=== PATIENT | male | born 1995 | race Caucasian/White ===

== ENCOUNTER 2022-05-02 21:05 | Observation (INO) | payer BC, SELFPAY ==
--- NOTE | ~2022-05-02 | XR_ITS ---
EXAMINATION: XR abdomen/kub 1V INDICATION: Abdominal pain TECHNIQUE: Supine views of the abdomen were obtained on 2 radiographs. COMPARISON: 05/03/2022; CT, 05/02/2022 FINDINGS: The bowel gas pattern is normal. There are no dilated loops of bowel. No free intraperitone al gas is identified. The visualized osseous structures are unremarkable. Phleboliths are noted in th e left pelvis. IMPRESSION: 1. Unremarkable KUB. Reviewed, dictated and finalized at location L. DHOUSE FIRER/FIREMAN IMPRESSION: 1. Unremarkable KUB.
--- NOTE | ~2022-05-02 | CT_ITS ---
[facility]AM[facility] DATE: 05/02/2022 23:01 INDICATION: Chronic cough, diarrhea, chronic back pain . TECHNIQUE: Computed tomography (CT) of the chest, abdomen,, pelvis, thoracic spine, and lumbar spine was performed with 100 mL Omnipaque-350 intravenous contrast. Automated exposure control and iterativ e reconstruction technique were employed. The dose-length product was 580.72 mGy-cm. COMPARISON: None FINDINGS: Thoracic aorta: No significant dilation or calcification. Lung parenchyma and airways: Lungs and airways are clear. Thoracic inlet, axillae and chest wall: No thyroid or soft tissue mass. No axillary lymphadenopathy. Mediastinum: No mass or lymphadenopathy. Heart and pericardium: Normal heart size. No pericardial effusion. Coronary artery calcifications: Absent. Pleura: No effusion or mass. Thoracic bones, excluding spine: No acute osseous finding in the chest. ABDOMEN/PELVIS: Liver: Normal. Biliary/Gallbladder: Gallbladder is normal. No bile duct dilation. Pancreas: No mass or duct dilation. Spleen: Normal. Adrenals:No mass. Kidneys: No mass, stone, or hydronephrosis. GI tract: Multiple loops of mildly dilated small bowel with mild wall thickening. No transition point . No pneumatosis. Uniform bowel wall enhancement. Fluid-filled colon. No large bowel dilation. Normal appendix. Mesentery/Peritoneum: No ascites, mass, or free air. Retroperitoneum: No mass. Pelvis: Pelvic organs are within normal limits. Focal prostate calcification. Soft Tissues: Soft tissues and body wall unremarkable. Abdominopelvic bones, excluding the spine: No acute osseous finding in the abdomen/pelvis. THORACIC SPINE: Vertebral body alignment intact. Vertebral body heights preserved. No disc space narrowing. No trauma tic malalignment or fracture. Visualized lung parenchyma is clear. LUMBAR SPINE: 5 nonrib-bearing lumbar-type vertebral bodies. Pedicles intact. Normal vertebral body alignment. Vert ebral body heights preserved. Bilateral sacralization of L5. Rudimentary disc at L5-S1. Remaining dis c spaces are normal. Normal facets and posterior elements. IMPRESSION: Infectious or inflammatory enteritis with mild ileus, noting that early or partial obstruction cannot be entirely excluded. If there is a history of vasculitis, bowel ischemia should be considered in th e differential. Fluid-filled colon, as can be seen with diarrheal illness. Otherwise, no acute findin g in the chest, abdomen, pelvis, thoracic spine, or lumbar spine. Reviewed, dictated and finalized at location K. GER SCIENCE IMPRESSION: Infectious or inflammatory enteritis with mild ileus, noting that early or part ial obstruction cannot be entirely excluded. If there is a history of vasculiti s, bowel ischemia should be considered in the differential. Fluid-filled colon, as can be seen with diarrheal illness. Otherwise, no acute finding in the ches t, abdomen, pelvis, thoracic spine, or lumbar spine.
--- NOTE | ~2022-05-02 | XR_ITS ---
EXAM: XR abdomen/kub 1V DATE: 05/03/2022 11:50 HISTORY: f/u bowel obstruction, N/V yesterday evening non stop . COMPARISON: None available. FINDINGS: Clear lung bases. Increased small bowel wall thickening in a loop of small bowel in the le ft upper quadrant, otherwise similar degree of mild small bowel wall thickening more diffusely. Incre ased mild small bowel dilation in the same loop in the left upper quadrant, otherwise the bowel dilat ion is less evident in this examination, noting that multiple loops of small bowel were fluid-filled in the prior study and would not be visualized radiographically. No organomegaly. No abnormal abdomin al calcification. Regional bones and soft tissues normal for age. IMPRESSION: Mildly increased dilation and small bowel wall thickening in a loop of small bowel in the left upper quadrant. Reviewed, dictated and finalized at location K. WALKER
[2022-05-02 21:10] VITALS: BP 129/78; PULSE 103; RESP 18; TEMP 36.5; O2SAT 99
--- NOTE | 2022-05-02 21:20 | ED.NAVMDI ---
HPI - Nausea/Vomiting/Diarrhea General Chief complaint: Nausea/Vomiting/Diarrhea Stated complaint: vomiting, diarrhea, back and side pain Time Seen by Provider: 05/02/22 21:07 Source: patient and RN notes reviewed Mode of arrival: ambulatory Limitations: no limitations History of Present Illness MD elicited complaint: nausea, vomiting and diarrhea Onset (ago): hour(s) (4) Description of vomiting: bilious Description of diarrhea: watery Associated nausea: Yes Associated abdominal pain: No Location of pain: diffuse Pain consistency: intermittent Severity: mild Quality: cramping Exacerbating factors: eating Relieving factors: none Context: sick contacts ( son with same symptoms) Associated symptoms: myalgias ( Lower back), fever/chills and malaise Related Data Home Medications Medication Instructions Recorded Confirmed No Home Medications 04/11/19 05/02/22 Allergies Allergy/AdvReac Type Severity Reaction Status Date / Time No Known Allergies Allergy Unverified 04/11/19 08:41 Review of Systems Review of Systems: All systems reviewed & are unremarkable except as noted in HPI and below PMFSH Past Medical History Medical History No active medical problems Small bowel obstruction, partial Surgical History Surgical History H/O wrist surgery right FX repair Social History Social History Smoking status: Never smoker Alcohol intake: never Substance use: never Substance use type: does not use Lack of Transportation: No Lack of Food: Never True Current Housing: I Have Housing Concerned About Future Housing: No Difficulty Paying Gas/Electric Bills: No Difficulty Paying for Meds: No Currently Unemployed: No Education: High School Diploma/GED Difficulty w/ Childcare or Family Care: No Gender identity (if verbalized by the patient): Male Spiritual care concerns: No Exam Const: General: healthy appearing, no acute distress and alert Nutritional Appearance: well nourished and thin Orientation/consciousness: patient oriented x3 Limitations: no limitations HENMT: Head: normal to inspection Ears: external ears normal Eyes: Conjunctivae: conjunctivae normal Cornea: corneas normal Pupils: Equal, round and reactive pupils present EOM: EOMs intact bilaterally Neck: Neck: normal visual inspection Resp: Effort & Inspection: normal respiratory effort Auscultation: clear to auscultation bilaterally Cardio: Rate: regular rate Rhythm: regular rhythm GI: GI Palp: Yes Soft to palpation, Yes Tenderness to palpation present (GI) ( mild generalized), Yes Guarding due to palpation present (GI) ( mild generalized) and No Rebound tenderness present Auscultation: normal bowel sounds Back/Spine/Pelvis: Cervical Spine: cervical ROM normal Thoracic/Lumbar Spine: thoraco-lumbar ROM normal Skin: General skin exam: normal color Rashes: no rashes Neuro: General: patient oriented x3, moves all extremities, no focal motor deficits and CN's II-XI intact bilaterally Speech: normal speech Gait exam (Neuro): Normal gait present Extrem: General: normal to inspection and no clubbing, cyanosis or edema Psych: Mental Status: mental status grossly normal Affect: normal affect Attitude: cooperative Course Course Emergency Course: patient given 500 mL bolus of normal saline then 1 L of LR with his elevated lactic acid. He is given 600 mg clindamycin IV. I discussed case with Lacey Garcia APN who agreed with observation admission. Vital Signs Vital signs: Vital Signs Temperature 36.5 C 05/02/22 21:10 Pulse Rate 103 H 05/02/22 21:10 Respiratory Rate 18 05/02/22 21:10 Blood Pressure 129/78 05/02/22 21:10 Pulse Oximetry 99 05/02/22 21:10 Oxygen Delivery Room Air 05/02/22 21:10 Temperature 36.7 C 05/04/22 08:00
[2022-05-02 21:33] LABS: Hematocrit 49.1 % (40.0-54.0); Hemoglobin 16.8 g/dL (14.0-18.0); Mean Corpuscular HGB Conc 34.2 g/dL (32.0-36.0); Mean Corpuscular Volume 84.8 fL (78.0-102.0); Mean Platelet Volume 9.4 fl (8.7-11.0); Platelet Count Result 269 K/mm3 (150-420); Red Blood Count 5.79 M/mm3 (4.70-6.10); Red Cell Distribution Width 12.3 % (11.6-14.4)
[2022-05-02 21:34] LABS: Appearance Urine Clear (Clear); Bilirubin Urine 2+ (Negative); Blood Urine Negative (Negative); Glucose Urine UA Negative (Negative); Ketones Urine 2+ (Negative); Leukocyte Esterase Ur Trace LEU/UL (Negative); Nitrate Urine Negative (Negative); Protein Urine 2+ (Negative); Specific Grav Ur >= 1.030 (1.010-1.020); pH Urine 5.5 (5.0-8.0)
[2022-05-02] MEDS: SODIUM CHLORIDE 0.9% IV 1,000 ML 999 ML IV CONT (21:35)
[2022-05-02 21:40] LABS: White Blood Count 20.2 K/mm3 (4.8-10.8)
[2022-05-02 21:41] LABS: Add Urine Microscopic? YES; Color Urine Dark Yellow (Yellow); RBC Urine 0-2 /hpf (0-2)
[2022-05-02 21:42] LABS: Amorphous Sediment Urine Few; Bacteria Urine 1+ /hpf; Mucus Urine Moderate /lpf; Squamous Epithelial Cell Urine Rare /hpf (Few)
[2022-05-02 21:46] LABS: Lactic Acid Reflex 4.6 mmol/L (0.4-2.0)
[2022-05-02 21:50] LABS: Alanine Aminotransferase 19 U/L (16-63); Albumin Level 5.4 g/dL (3.4-5.0); Alkaline Phosphatase 92 U/L (46-116); Anion Gap 17 mmol/L (8-16); Aspartate Amino Transferase 20 U/L (15-37); Bilirubin,Total 2.2 mg/dL (0.00-1.00); Blood Urea Nitrogen 24 mg/dL (7-18); Calcium 10.8 mg/dL (8.5-10.1); Carbon Dioxide 26 mmol/L (21-32); Chloride 98 mmol/L (98-108); Estimated CRCL calculation 57 ml/min; Estimated Glomerular Filt Rate > 60; Glucose 193 mg/dL (70-99); Osmolality Calculated 301 mOsm/kg (285-295); Potassium 3.7 mmol/L (3.5-5.1); Sodium 141 mmol/L (136-145)
[2022-05-02 21:51] LABS: CRP < 0.5 mg/dL (0.0-0.9); Magnesium 1.6 mg/dL (1.8-2.4)
[2022-05-02 22:03] LABS: Influenza A QL RT-PCR Negative (Negative); Influenza B QL RT-PCR Negative (Negative); SARS-CoV-2 RNA PCR Negative (Negative)
[2022-05-02 22:04] LABS: Band Neutrophils Percent 3 % (0-6); Basophils Percent Manual 0 % (0-1); Eosinophils Percent Manual 1 % (1-6); Lymphocytes Absolute Manual 1.21 K/mm3 (1.1-4.5); Lymphocytes Percent Manual 6 % (18-44); Monocytes Absolute Manual 1.61 K/mm3 (0.1-0.90); Monocytes Percent Manual 8 % (3-9); Neutrophils Absolute Manual 17.17 K/mm3 (1.3-6.7); Neutrophils Percent Manual 82 % (46-73); Platelet Estimate Adequate (Adequate); Total Cells Counted 100
[2022-05-02] MEDS: LACTATED RINGERS 1,000 ML 999 ML IV CONT (22:19)
[2022-05-02 23:29] VITALS: BP 96/53; PULSE 106; RESP 20; TEMP 36.8; O2SAT 99
[2022-05-02] MEDS: CLINDAMYCIN 600 MG/D5W 50 ML 600 MG/50 ML PIGGYBACK 100 MG IVPB (23:39)
[2022-05-02 23:58] VITALS: BP 105/85; PULSE 105; RESP 20; O2SAT 100
[2022-05-03] VITALS (13 sets, daily range): BP systolic 99–120; BP diastolic 47–67; PULSE 70–110; RESP 14–20; TEMP 36.9–37.8; O2SAT 97–100; BMI 18.3
[2022-05-03] MEDS: LACTATED RINGERS 1,000 ML 150 ML IV CONT ×2 (00:17→06:26)
[2022-05-03 00:27] LABS: Reflex Lactic Acid Yes or No Add Lactic
[2022-05-03 00:59] LABS: Lactic Acid 1.3 mmol/L (0.4-2.0)
--- NOTE | 2022-05-03 01:15 | ADMGEN ---
This patient, Blake Delacruz, was admitted to 2nd Floor Room 226-2 for 23 hr obs on telemetry. Patient/family oriented to hospital policies and general routines including ID bracelet, bed and alarms, visiting hours, pain management, procedures, bathroom and other care routines, personal items, smoking policy, room service/diet, and visiting hours. Information on how to activate the Rapid Response Team has been discussed. Patient/Family are encouraged to report perceived risks to care and to ask questions if they do not understand what they are told or what they should do. Pt. is knowledgable on POC and obs. stay, he has no report of c/o at this time and states he is feeling much better on admission, reports he is tired but will call if needed or changes occur.
--- NOTE | 2022-05-03 03:30 | PC.NURSE ---
Pt sleeping, no distress noted, IVF infusing as per order, call galaviz at pt side.
--- NOTE | 2022-05-03 05:00 | PC.NURSE ---
Pt awake, noted temp is down to 99.0. Pt has c/o slight nausea but refuses any antinausea medicine, states he wants to sleep. VSS no distress or other c/o. Call galaviz at pt side.
[2022-05-03 05:25] LABS: Alanine Aminotransferase 15 U/L (16-63); Albumin Level 3.6 g/dL (3.4-5.0); Alkaline Phosphatase 63 U/L (46-116); Anion Gap 6 mmol/L (8-16); Aspartate Amino Transferase 14 U/L (15-37); Bilirubin,Total 2.2 mg/dL (0.00-1.00); Blood Urea Nitrogen 20 mg/dL (7-18); Calcium 8.8 mg/dL (8.5-10.1); Carbon Dioxide 30 mmol/L (21-32); Chloride 106 mmol/L (98-108); Estimated CRCL calculation 71 ml/min; Estimated Glomerular Filt Rate > 60; Glucose 128 mg/dL (70-99); Osmolality Calculated 298 mOsm/kg (285-295); Potassium 4.3 mmol/L (3.5-5.1); Sodium 142 mmol/L (136-145); Total Protein 6.4 g/dL (6.4-8.2)
[2022-05-03 05:29] LABS: Lactic Acid Reflex 1.1 mmol/L (0.4-2.0)
[2022-05-03] MEDS: CLINDAMYCIN 600 MG/D5W 50 ML 600 MG/50 ML PIGGYBACK 100 MG IVPB (05:52)
--- NOTE | 2022-05-03 06:22 | PC.NURSE ---
Pt awake, c/o nausea and given Zofran 4mg IVP as per order. Pt walked to BR, had episode of diarrhea and urinated. Back to bed, he reports feeling some better.
[2022-05-03] MEDS: ONDANSETRON INJ 4 MG/2 ML VIAL IV PUSH ×2 (06:26→11:02)
[2022-05-03] MEDS: ACETAMINOPHEN 325 MG TABLET 650 MG (11:01)
[2022-05-03 11:11] LABS: Basophils Absolute Auto 0.02 K/mm3 (0.00-0.10); Basophils Percent Auto 0.2 % (0.0-1.0); Eosinophils Absolute Auto 0.01 K/mm3 (0.02-0.50); Eosinophils Percent Auto 0.1 % (1.0-6.0); Hematocrit 39.9 % (40.0-54.0); Hemoglobin 13.4 g/dL (14.0-18.0); Immature Granulocyte Absolute 0.03 K/mm3 (0.00-0.00); Immature Granulocyte Percent A 0.3 % (0.0-0.0); Lymphocytes Absolute Auto 0.58 K/mm3 (1.10-4.50); Mean Corpuscular HGB Conc 33.6 g/dL (32.0-36.0); Mean Corpuscular Hemoglobin 29.2 pg (27.0-31.0); Mean Corpuscular Volume 86.9 fL (78.0-102.0); Mean Platelet Volume 10.2 fl (8.7-11.0); Monocytes Absolute Auto 0.79 K/mm3 (0.10-0.90); Monocytes Percent Auto 6.9 % (2.0-11.0); Neutrophils Absolute Auto 10.1 K/mm3 (1.7-7.2); Neutrophils Percent Auto 87.5 % (50.0-70.0); Platelet Count Result 210 K/mm3 (150-420); Red Blood Count 4.59 M/mm3 (4.70-6.10); Red Cell Distribution Width 12.8 % (11.6-14.4); White Blood Count 11.5 K/mm3 (4.8-10.8)
--- NOTE | 2022-05-03 11:21 | PM.IMHP ---
H&P: HPI History of Present Illness Date/Time: 05/03/22 11:21 Chief Complaint: nausea and vomiting, Diarrhea Narrative: This is a 26 year old that comes in with nausea and vomiting with diarrhea that was severe and it started 3 hour prior to coming in to the emergency room . Patient has a insignificance past medical history and had his tonsils removed and fracture pin placed for surgical history . Patient take no medication at home he does not have a primary care provider and he does not smoke and drinks on occasion. Patient was found to have a UTI and some enteritis with a possible start of bowel obstruction with a noted small ileus noted Patient has remained NPO and is still having 1 episode of diarrhea noted. Mr. Delacruz is getting IV fluids switched his antibiotic from clindamycin to Rocephin and I have given him some Flagyl as well. Awaiting KUB Result as we will start him on clear liquid. Review of Systems Review of Systems: Abdominal pain , nausea , vomiting All systems reviewed & are unremarkable except as noted in HPI and below PMFSH Past Medical History Medical History (Updated 05/03/22 @ 11:29 by Marlene Swain NP) No active medical problems Small bowel obstruction, partial Surgical History Surgical History H/O wrist surgery right FX repair Social History Social History Smoking status: Never smoker Alcohol intake: never Substance use: never Substance use type: does not use Lack of Transportation: No Lack of Food: Never True Current Housing: I Have Housing Concerned About Future Housing: No Difficulty Paying Gas/Electric Bills: No Difficulty Paying for Meds: No Currently Unemployed: No Education: High School Diploma/GED Difficulty w/ Childcare or Family Care: No Gender identity (if verbalized by the patient): Male Spiritual care concerns: No Comments At time as signature, I have reviewed and agree with nursing past medical, social, surgical and family history. Please see nursing chart for further information. There is no relevant family history pertinent to the presenting complaint. Meds Home Medications and Allergies Home Medications Medication Instructions Recorded Confirmed Type No Home Medications 04/11/19 05/02/22 History Allergies Allergy/AdvReac Type Severity Reaction Status Date / Time No Known Allergies Allergy Unverified 04/11/19 08:41 Vital Signs Vital Signs - 24 hr 05/02/22 21:10 05/02/22 23:29 05/02/22 23:58 Temperature 97.7 F 98.3 F Pulse Rate 103 H 106 H 105 H Respiratory Rate 18 20 20 Blood Pressure 129/78 96/53 L 105/85 Pulse Oximetry 99 99 100 Oxygen Delivery Room Air Room Air Room Air 05/03/22 01:05 05/03/22 01:24 05/03/22 01:25 Temperature 100.1 F H 100.1 F H Pulse Rate 110 H 110 H Respiratory Rate 20 Blood Pressure 118/57 L Pulse Oximetry 97 Oxygen Delivery Room Air 05/03/22 03:52 05/03/22 04:55 05/03/22 06:00 Temperature 99 F 98.9 F Pulse Rate 97 96 70 Respiratory Rate 18 20 Blood Pressure 115/67 110/54 L Pulse Oximetry 97 100 Oxygen Delivery Room Air Room Air 05/03/22 08:00 05/03/22 08:00 05/03/22 11:01 Temperature 99.2 F 99.5 F Pulse Rate 96 96 Respiratory Rate 14 Blood Pressure 99/47 L Pulse Oximetry 97 Oxygen Delivery Room Air Exam Narrative: GENERAL:Well-appearing, well-nourished, and in no acute distress. HEAD:Normocephalic, atraumatic. EYES: PERRLA and EOMI. ENT: Nares clear, no rhinorrhea or epistaxis. Mucous membranes moist. CHEST: Clear to auscultation. No respiratory distress. HEART: Regular rate and rhythm. No murmur heard. Normal peripheral pulses. ABDOMEN: Soft, nontender, nondistended, normal active bowel sounds. EXTREMITIES: Normal range of motion. No edema. SKIN: Warm, dry, no rash. NEURO: No focal deficits. Alert and oriented
[2022-05-03] MEDS: BISACODYL 5 MG TABLET EC PO (12:35)
[2022-05-03] MEDS: SODIUM CHLORIDE 0.9% IV 1,000 ML 100 ML (12:40)
[2022-05-03] MEDS: metroNIDAZOLE 500 MG/ISO 100ML 500 MG/100 ML BAG 100 MG IVPB ×2 (12:47→19:42)
--- NOTE | 2022-05-03 14:20 | PC.NURSE ---
Called to room to view BM, noted to have dark green grainy type stool at bottom of toilet, no formed stool noted
--- NOTE | 2022-05-03 15:00 | PC.NURSE ---
CHARGE NURSE INFORMED ELECTROPLATER THAT PATIENT HAS BEEN ADVANCED TO CLEAR LIQUID DIET AND ORDER WILL BE PUT IN BY NURSE PRACTITIONER. NO NAUSEA/VOMITING AT THIS TIME. PT HAVING BOWEL MOVEMENTS OF GREEN/YELLOW GREASY CLEAR LIQUID. HAT PLACED IN COMMODE FOR BETTER ASSESSMENT. THERE IS AN ORDER FOR IV LR THAT IS SHOWING ON PATIENT MAR, HOWEVER PER CHARGE NURSE THIS WAS AN ERROR BY THE ORE WASHER AND REPORTS ORE WASHER WILL DISCONTINUE AND CONTINUE WITH NORMAL SALINE. IVF INFUSING.
--- NOTE | 2022-05-03 15:36 | PC.NURSE ---
Pt has been having diarhea through out the day. This has changed from clear watery stool to green stool with solid flecks.
[2022-05-03] MEDS: polyethylene glycoL 3350 17 GM POWD.PACK PO (17:08)
[2022-05-03] MEDS: levoFLOXacin 500 MG/D5W 100 ML 500 MG/100 ML BAG 100 MG IVPB (18:07)
[2022-05-03] MEDS: SODIUM CHLORIDE 0.9% IV 1,000 ML 100 ML IV CONT (18:11)
[2022-05-04] MEDS: ONDANSETRON INJ 4 MG/2 ML VIAL IV PUSH (01:30)
[2022-05-04] MEDS: SODIUM CHLORIDE 0.9% IV 1,000 ML 100 ML IV CONT (01:34)
[2022-05-04] MEDS: ACETAMINOPHEN 325 MG TABLET 650 MG PO (02:03)
[2022-05-04] MEDS: metroNIDAZOLE 500 MG/ISO 100ML 500 MG/100 ML BAG 100 MG IVPB (03:11)
[2022-05-04 05:27] LABS: Basophils Absolute Auto 0.01 K/mm3 (0.00-0.10); Basophils Percent Auto 0.2 % (0.0-1.0); Eosinophils Absolute Auto 0.14 K/mm3 (0.02-0.50); Eosinophils Percent Auto 2.6 % (1.0-6.0); Hematocrit 35.5 % (40.0-54.0); Hemoglobin 11.9 g/dL (14.0-18.0); Immature Granulocyte Absolute 0.02 K/mm3 (0.00-0.00); Immature Granulocyte Percent A 0.4 % (0.0-0.0); Lymphocytes Absolute Auto 1.29 K/mm3 (1.10-4.50); Lymphocytes Percent Auto 24.1 % (18.0-42.0); Mean Corpuscular HGB Conc 33.5 g/dL (32.0-36.0); Mean Corpuscular Hemoglobin 29.4 pg (27.0-31.0); Mean Corpuscular Volume 87.7 fL (78.0-102.0); Mean Platelet Volume 9.4 fl (8.7-11.0); Monocytes Absolute Auto 0.79 K/mm3 (0.10-0.90); Monocytes Percent Auto 14.7 % (2.0-11.0); Neutrophils Absolute Auto 3.1 K/mm3 (1.7-7.2); Platelet Count Result 143 K/mm3 (150-420); Red Blood Count 4.05 M/mm3 (4.70-6.10); Red Cell Distribution Width 12.5 % (11.6-14.4); White Blood Count 5.4 K/mm3 (4.8-10.8)
[2022-05-04 08:00] VITALS: BP 113/57; PULSE 80; RESP 14; TEMP 36.7; O2SAT 98
--- NOTE | 2022-05-04 11:22 | PM.DS ---
DS: Admitting Diagnosis Discharge Date 05/04/2022 Admitting Diagnosis UTI, Enteritis, Ileus DS: Discharge Diagnosis Discharge Diagnosis (1) Small bowel obstruction, partial: Code(s): K56.600 - Partial intestinal obstruction, unspecified as to cause Status: Acute Assessment and Plan: KUB show no abnormal finding at this time. (2) Ileus due to infection: Code(s): K56.7 - Ileus, unspecified; B99.9 - Unspecified infectious disease Status: Acute Assessment and Plan: NPO IVF KUB pending will possible start patient on clear liquids Patient tolerating food with no nausea/Vomiting and no guarding denies abdominal pain (3) Enteritis: Code(s): K52.9 - Noninfective gastroenteritis and colitis, unspecified Status: Acute Assessment and Plan: IVF WBC 20> 11.5>5.4 Pt will go home on levaquin, Flagyl prn Zofran, Protonix (4) Acute UTI: Code(s): N39.0 - Urinary tract infection, site not specified Status: Acute Assessment and Plan: Rocephin IVF Flagyl Plan for discharge in the am Oral Levaquin Culture Pending DS: Summary Hospital Course Reason for hospitalization: Enteritis , Partial bowel obstruction, Ileus, Nausea/ Vomiting diarrhea Hospital Course: This is a 26 year old male that was admitted to the hospital with a ileus, small bowel obstruction and possible inflammatory or infectious colitis. Patient denies any significant past medical history and he has not been to a primary care provider in year and currently does not have one. patient was given some MiraLax as well as urinating without difficulty according to Joaquingavino his symptoms have since resolved he was given some IV antibiotics and he is feeling a lot better he has remained afebrile no nausea vomiting he did have some diarrhea as we gave him some new block suppository which shows some constipation and he has gone without any difficulties he is somewhat active bowel sounds no abdominal pain with palpitation and his labs are trending down. At this time patient will discharge home he will continue on MiraLax he will follow-up with the primary care provider and some oral antibiotics patient's potassium is 4.3, sodium 142, BUN is 20, creatinine 1.06, glucose is 128, RBCs are 4.05, wbc's are 5.4, hemoglobin 11.9, platelets are 143 patient has had an appointment set up or he can follow we will continue to monitor Time Spent with Patient Time attestation: Total time spent providing and/or coordinating discharge services: Exam Narrative: GENERAL:Well-appearing, well-nourished, and in no acute distress. HEAD:Normocephalic, atraumatic. EYES: PERRLA and EOMI. ENT: Nares clear, no rhinorrhea or epistaxis. Mucous membranes moist. CHEST: Clear to auscultation. No respiratory distress. HEART: Regular rate and rhythm. No murmur heard. Normal peripheral pulses. ABDOMEN: Soft, nontender, nondistended, normal active bowel sounds. EXTREMITIES: Normal range of motion. No edema. SKIN: Warm, dry, no rash. NEURO: No focal deficits. Alert and oriented x3. DS: Data Data Completed and Pending Labs on day of discharge: Labs from last 24 hours 05/04/22 04:52 WBC 5.4 RBC 4.05 L Hgb 11.9 L Hct 35.5 L MCV 87.7 MCH 29.4 MCHC 33.5 RDW 12.5 Plt Count 143 L MPV 9.4 Immature Gran % (Auto) 0.4 H Neut % (Auto) 58.0 Lymph % (Auto) 24.1 [place] % (Auto) 14.7 H Eos % (Auto) 2.6 Baso % (Auto) 0.2 Lymph # (Auto) 1.29 [place] # (Auto) 0.79 Eos # (Auto) 0.14 Baso # (Auto) 0.01 Abs Immat Gran (auto) 0.02 H Absolute Neuts (auto) 3.1 Absolute Nucleated RBC 0.00 Nucleated RBC % 0.0 Discharge Plan Discharge Attending physician on discharge: Keenan Gaston Consulting providers: Marlene Swain ; Fabio Melgoza ; Virgil Ellis Discharging Clinician: Marlene Swain Anticipated Discharge Date/Time: 05/04/22 11:04 Patient Disposition: Home, Self-Care Acti
--- NOTE | 2022-05-04 11:57 | PC.NURSE ---
Discharge summary faxed to [facility] at [phone].
--- NOTE | 2022-05-04 12:02 | PC.NURSE ---
Pt given discharge instructions for medications, PCP follow up, diet instructions and S&S to return to the ER for. Pt discharged to parents. Pt transported via to family car.
--- NOTE | 2022-05-08 09:50 | PC.NURSE ---
Unable to contact for discharge call back.
== END 2022-05-04 11:50 | disposition home or self-care (01) ==
LOC: CHSED 23:33 → CHS2ND 05-03 00:26
PROVIDERS: Nurse Practitioner Family; Admitting Provider Internal Medicine; Emergency Provider Emergency Medicine; Visit Provider Internal Medicine
DX: K52.9 Noninfective gastroenteritis and colitis, unspecified (principal); K56.7 Ileus, unspecified; K56.600 Partial intestinal obstruction, unspecified as to cause; Z20.822 Contact with and (suspected) exposure to COVID-19
CPT/HCPCS: 36415; 71260; 72129; 72132; 74018; 74177; 80053; 81001; 83605; 83735; 85025; 86140; 87040; 87045; 87324; 87427; 87636; 89055; 96361; 96365; 96367; 96375; 99285; A9270; G0378; J0131; J0696; J1956; J2405; J7030; J7120; Q9967